=== PATIENT | female | born 1940 | race Caucasian/White ===

== ENCOUNTER 2020-08-05 07:12 | Day surgery (SDC) | payer MEDICARE, BC ==
[~2020-08-05] VITALS: Ht 165.1 cm; Wt 63.5 kg
[~2020-08-05 07:12] MED LIST: ASPIRIN LOW DOS81 M2 PO; CIPROFLOXACN500 MG PO; CLARITIN-D1 TA2 PO; IMODIUM2 MG PO; LEVAQUIN500 MG PO; LISINOPRIL20 MG PO; LORATADINE10 M1 PO; LOSARTAN POTASS50 MG PO; LOVASTATIN20 M1 PO; PERCOCET 5/325M1 TAB PO; PHENERGAN25 MG/TAB PO; PREDNISONE10 MG PO; PROLIA60 MG/ML SC; PT DOESNT KNOW MEDS; TRAMADOL HCL50 MG PO; VITA D-1000 PO; VITAMIN D31000 UNI1 PO; ZOFRAN ODT4 MG PO
[2020-08-05 09:57] VITALS: BP 168/80
== END 2020-08-05 10:15 | disposition home or self-care (01) ==
LOC: ORM 07:12
PROVIDERS: ATTEND Anesthesiology Pain Medicine
DX: M54.5 Low back pain (principal); M12.9 Arthropathy, unspecified; Z01.84 Encounter for antibody response examination